=== PATIENT | male | born 1970 | race Hispanic/Latino ===

== ENCOUNTER 2023-08-05 07:34 | Inpatient (IN) | payer BC ==
[2023-08-05] VITALS (17 sets, daily range): BP systolic 117–148; BP diastolic 63–99; PULSE 64–86; RESP 12–28; TEMP 98.3; O2SAT 95–100
[~2023-08-05] VITALS: Ht 175.3 cm; Wt 104.3 kg
[2023-08-05 08:02] LABS: BASOPHILS % 0.3 % (0.0-1.0); EOSINOPHILS # (AUTO) 0.3 (0.0-0.4); EOSINOPHILS % 2.5 % (0.0-6.0); HEMATOCRIT 38.3 % (38.2-49.6); HEMOGLOBIN 12.2 g/dL (14.0-18.0); LYMPHOCYTES # (AUTO) 1.4 (1.0-3.2); LYMPHOCYTES % 14.6 % (18.0-39.1); MEAN CORPUSCULAR HEMOGLOBIN 28.3 pg (28-32); MEAN CORPUSCULAR HGB CONC 31.9 g/dL (31-35); MEAN CORPUSCULAR VOLUME 88.9 fL (81-99); MONOCYTES # (AUTO) 0.6 (0.2-0.8); MONOCYTES % 5.6 % (4.4-11.3); NEUTROPHILS # (AUTO) 7.6 (2.1-6.9); NEUTROPHILS % 76.7 % (38.7-80.0); PLATELET COUNT 196 x10e3/uL (140-360); RED BLOOD COUNT 4.31 x10e6/uL (4.3-5.7); RED CELL DISTRIBUTION WIDTH 13.8 % (11.7-14.4); WHITE BLOOD COUNT 9.86 x10e3/uL (4.8-10.8)
[2023-08-05] MEDS ORDERED: ASPIRIN 81 MG CHEW TAB PO ONE (08:15)
[2023-08-05 08:35] LABS: ANION GAP 13.8 mmol/L (8-16); BILIRUBIN,TOTAL 0.4 mg/dL (0.2-1.2); CALCIUM 9.7 mg/dL (8.4-10.2); CREATININE, SERUM 1.13 mg/dL (0.72-1.25); LIPASE 62 U/L (8-78); POTASSIUM 3.8 mmol/L (3.5-5.1)
[2023-08-05 08:48] LABS: TROPONIN I < 0.05 ng/mL (0.0-0.40)
[2023-08-05] MEDS ORDERED: HEPARIN SOD (PORCINE) 1000 UNIT/ML 30ML ONE (10:23)
[2023-08-05] MEDS ORDERED: NITROGLYCERIN/D5W 200 MCG/ML 250 ML ONE (10:24)
[2023-08-05] MEDS ORDERED: IOPAMIDOL 370 MG/ML 100 ML INFUS..BTL INJ ONE ×3 (10:24→11:42)
[2023-08-05] MEDS ORDERED: LIDOCAINE HCL 2% LOCAL 20 ML VIAL ONE (10:24)
[2023-08-05] MEDS ORDERED: SODIUM CHLORIDE 0.9% 1000ML 1,000 ML ONE (10:24)
[2023-08-05] MEDS ORDERED: HEPARIN SOD/SOD CHLORIDE 2,000 ML ONE (10:24)
[2023-08-05] MEDS ORDERED: VERAPAMIL HCL 2.5 MG/ML 2 ML VIAL ONE (10:24)
[2023-08-05] MEDS ORDERED: FENTANYL CITRATE/PF 100MCG/2 ML INJ ONE (10:25)
[2023-08-05] MEDS ORDERED: MIDAZOLAM HCL 2 MG/2 ML VIAL ONE ×2 (10:25→10:51)
[2023-08-05] MEDS ORDERED: AMLODIPINE BESYL5 MG PO (10:51)
[2023-08-05] MEDS ORDERED: ROSUVASTATIN CA40 MG PO (10:51)
[2023-08-05] MEDS ORDERED: CLOPIDOGREL75 MG PO ×2 (10:51→16:51)
[2023-08-05] MEDS ORDERED: METOPROLOL TART50 MG PO (10:51)
[2023-08-05] MEDS ORDERED: RANOLAZINE ER500 MG PO (10:51)
[2023-08-05] MEDS ORDERED: BENICAR20 MG PO (10:51)
[2023-08-05] MEDS ORDERED: HYDROCHLOROTHIA50 MG PO (10:52)
[2023-08-05] MEDS ORDERED: HEPARIN SOD/SOD CHLORIDE 1,000 ML ONE (11:31)
[2023-08-05] MEDS ORDERED: TICAGRELOR 90 MG TABLET ONE (11:54)
[2023-08-05] MEDS ORDERED: ASPIRIN 325 MG TAB ONE (11:54)
[2023-08-05] MEDS ORDERED: ASPIRIN CHEW81 MG PO (16:51)
== END 2023-08-05 17:22 | disposition home or self-care (01) | DRG 322 ==
LOC: ER 07:41 → ERHOLD 08:05 → MED/SURG 09:30
PROVIDERS: ADMIT Internal Medicine; ATTEND Internal Medicine
PROC: 027034Z Dilation of Coronary Artery, One Artery with Drug-eluting Intraluminal Device, Percutaneous Approach (ICD-10-PCS; principal; 2023-08-05)
PROC: 4A023N7 Measurement of Cardiac Sampling and Pressure, Left Heart, Percutaneous Approach (ICD-10-PCS; 2023-08-05)
PROC: B2111ZZ Fluoroscopy of Multiple Coronary Arteries using Low Osmolar Contrast (ICD-10-PCS; 2023-08-05)
DX: I25.110 Atherosclerotic heart disease of native coronary artery with unstable angina pectoris (principal); I10 Essential (primary) hypertension; E66.9 Obesity, unspecified; E78.5 Hyperlipidemia, unspecified; Z87.891 Personal history of nicotine dependence; Z68.34 Body mass index [BMI] 34.0-34.9, adult; Z20.822 Contact with and (suspected) exposure to COVID-19
CPT/HCPCS: 36415; 71045; 80053; 83690; 84484; 85025; 92928; 92978; 93005; 93458; 94799; 99152; 99153; 99284; C1725; C1753; C1769; C1874; C1887; J1644; J2001; J2250; J7030; Q9967; U0002